=== PATIENT | female | born 1990 | race Caucasian/White ===

== ENCOUNTER 2017-07-15 12:33 | Emergency (ER) | payer SELFPAY ==
[2017-07-15 13:31] LABS: #Eosinphils 0.3 thou/uL (0.0-0.7); #Monocytes 0.7 thou/uL (0.11-0.59); #Neutrophils 5.7 thou/uL (1.40-6.50); %Basophils 0.3 % (0.0-1.0); %Eosinophils 3.3 % (0.0-10.0); %Monocytes 7.8 % (0.0-10.0); Hematocrit 42.3 % (36.0-47.0); Mean Platelet Volume 8.2 fL (7.4-10.4); Red Blood Cell (RBC) Count 4.52 mill/uL (4.20-5.40); White Blood Cell (WBC) Count 8.6 thou/uL (4.8-10.8)
[2017-07-15 13:51] LABS: Bilirubin Negative (Negative); Blood, Urine Negative (Negative); Glucose, Urine (Dipstick) Negative (Negative); Ketone, Urine Negative (Negative); Nitrite Negative (Negative); Protein, Urine (Dipstick) Negative (Neg-Trace); Urobilinogen 0.2 mg/dL (0.2-1.0)
[2017-07-15 13:53] LABS: Bacteria/HPF 1+ HPF (None Seen); Hyaline Casts/LPF 0-3 HYALINE CAST LPF (0-3 Hyaline); RBC/HPF 0-3 HPF (0-3)
[2017-07-15 13:53] LABS: ALT (SGPT) 13 U/L (8-55); AST (SGOT) 13 U/L (5-34); Alkaline Phosphatase 96 U/L (40-150); Anion Gap 12 mmol/L (10-20); BUN (Urea Nitrogen) 6 mg/dL (7.0-18.7); Bilirubin, Total 0.3 mg/dL (0.2-1.2); Calc. Creatinine Clearance 0 mL/min (70-130); Calcium 8.9 mg/dL (7.8-10.44); Carbon Dioxide 22 mmol/L (22-29); Chloride 108 mmol/L (98-107); Estimated GFR-MDRD 89; Globulin 2.7 g/dL (2.4-3.5); Protein, Total 6.7 g/dL (6.0-8.3)
[2017-07-15] MEDS ORDERED: Metoclopramide HCl 10 MG/2 ML VIAL ONE (14:07)
[2017-07-15] MEDS ORDERED: Ketorolac Tromethamine 30 MG/ML VIAL ONE (14:07)
[2017-07-15] MEDS ORDERED: diphenhydrAMINE HCl 50 MG/ML 1 ML VIAL ONE (14:07)
== END 2017-07-15 15:19 | disposition home or self-care (01) ==
LOC: ERS 12:33
DX: G43.909 Migraine, unspecified, not intractable, without status migrainosus (principal); F17.210 Nicotine dependence, cigarettes, uncomplicated
CPT/HCPCS: 36415; 80053; 81003; 81015; 84703; 85025; 96361; 96374; 96375; J1200; J1885; J2765

== ENCOUNTER 2017-12-15 20:30 | Emergency (ER) | payer SELFPAY ==
[2017-12-15] MEDS ORDERED: Dexamethasone 4 mg/ml Vial ONE (21:31)
== END 2017-12-15 21:36 | disposition home or self-care (01) ==
LOC: ERS 20:30
DX: H65.93 Unspecified nonsuppurative otitis media, bilateral (principal); G43.909 Migraine, unspecified, not intractable, without status migrainosus; F17.210 Nicotine dependence, cigarettes, uncomplicated
CPT/HCPCS: 99283; J1100

== ENCOUNTER 2018-06-02 11:22 | Emergency (ER) | payer OTHER, SELFPAY ==
[2018-06-02] MEDS ORDERED: Ketorolac Tromethamine 30 MG/ML VIAL ONE (12:19)
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
== END 2018-06-02 12:36 | disposition home or self-care (01) ==
LOC: ERS 11:22
DX: S06.0X1A Concussion with loss of consciousness of 30 minutes or less, initial encounter (principal); S16.1XXA Strain of muscle, fascia and tendon at neck level, initial encounter; G43.909 Migraine, unspecified, not intractable, without status migrainosus; F17.210 Nicotine dependence, cigarettes, uncomplicated; V43.52XA Car driver injured in collision with other type car in traffic accident, initial encounter
CPT/HCPCS: 70450; 72125; 96374; G0390; J1885

== ENCOUNTER 2018-08-26 15:43 | Emergency (ER) | payer OTHER, SELFPAY ==
[~2018-08-26 15:43] MED LIST: ISOVUE-370 76%-LOCM 1 ML ONE
[2018-08-26 16:27] LABS: Bilirubin Negative (Negative); Blood, Urine Negative (Negative); Clarity CLEAR (Clear); Glucose, Urine (Dipstick) Negative (Negative); Leukocyte Moderate (Negative); Nitrite Negative (Negative); Protein, Urine (Dipstick) Negative (Neg-Trace); Specific Gravity, Urine 1.025 (1.002-1.036); Urobilinogen 0.2 mg/dL (0.2-1.0); pH, Urine 6.5 (5.0-9.0)
[2018-08-26 16:29] LABS: Bacteria/HPF Rare-Few HPF (None Seen); Hyaline Casts/LPF 0-3 HYALINE CAST LPF (0-3 Hyaline)
[2018-08-26 16:31] LABS: #Eosinphils 0.1 thou/uL (0.0-0.7); #Lymphocytes 1.2 thou/uL (1.20-3.40); #Monocytes 0.8 thou/uL (0.11-0.59); #Neutrophils 6.2 thou/uL (1.40-6.50); %Basophils 0.3 % (0.0-1.0); %Eosinophils 0.6 % (0.0-10.0); %Lymphocytes 14.3 % (21.0-51.0); %Monocytes 9.7 % (0.0-10.0); %Neutrophils 75.1 % (42.0-75.0); Hemoglobin 14.6 g/dL (12.0-16.0); Mean Corpuscular HGB CONC 34.3 g/dL (32.0-36.0); Mean Corpuscular Hemoglobin 31.5 pg (27.0-31.0); Mean Platelet Volume 7.7 fL (7.4-10.4); Platelet Count 208 thou/uL (130-400); RBC Distribution Width 11.8 % (11.5-14.5); Red Blood Cell (RBC) Count 4.63 mill/uL (4.20-5.40); White Blood Cell (WBC) Count 8.2 thou/uL (4.8-10.8)
[2018-08-26 16:34] LABS: Pregnancy Test - Urine (BHCG) Negative (Negative); Pregu Control Background? CLEAR/WHITE (CLR/WHITE); Pregu Control Bar Appear? YES (CONTROL BAR); Specific Gravity 1.025 (1.002-1.036)
[2018-08-26] MEDS ORDERED: Metoclopramide HCl 10 MG/2 ML VIAL ONE (16:42)
[2018-08-26] MEDS ORDERED: Ketorolac Tromethamine 30 MG/ML VIAL ONE (16:42)
[2018-08-26] MEDS ORDERED: diphenhydrAMINE 50 MG/ML VIAL ONE (16:42)
[2018-08-26] MEDS ORDERED: Lidocaine 1% (PF) 30 ML VIAL ONE (16:44)
[2018-08-26 16:50] LABS: ALT (SGPT) 23 U/L (8-55); AST (SGOT) 21 U/L (5-34); Albumin 4.2 g/dL (3.5-5.0); Alkaline Phosphatase 103 U/L (40-150); Anion Gap 9 mmol/L (10-20); BUN (Urea Nitrogen) 11 mg/dL (7.0-18.7); Bilirubin, Total 0.4 mg/dL (0.2-1.2); Calc. Creatinine Clearance 0 mL/min (70-130); Calcium 9.3 mg/dL (7.8-10.44); Carbon Dioxide 29 mmol/L (22-29); Chloride 102 mmol/L (98-107); Estimated GFR-MDRD 80; Globulin 2.7 g/dL (2.4-3.5); Glucose 119 mg/dL (70-105); Lipase 18 U/L (8-78); Protein, Total 6.9 g/dL (6.0-8.3); Sodium 136 mmol/L (136-145)
[2018-08-26] MEDS ORDERED: Acetaminophen 500 MG TAB ONE (17:51)
[2018-08-26] MEDS ORDERED: methylPREDNISolone Sod Succ/PF 125 MG/2 ML VIAL ONE (17:51)
--- NOTE | 2018-08-26 18:48 | CT ---
CT ABDOMEN AND PELVIS: 08/26/2018 HISTORY: Lower abdominal pain. COMPARISON: None. TECHNIQUE: Axial CT imaging at 5 mm intervals, from the lung bases through the pubic symphysis, with IV contrast . Coronal reformatted imaging obtained. FINDINGS: The imaged lung bases appear unremarkable. No free intraperitoneal air. Trace free fluid is noted i n the right hemipelvis/pelvic cul-de-sac. The liver, gallbladder, and pancreas appear unremarkable. The spleen is mildly enlarged, measuring 1 4.6 cm in craniocaudal dimension. The adrenal glands and kidneys demonstrate no acute findings. There is an IUD within the pelvis. Limited assessment of the bowel without oral contrast media demonstrates no acute findings. The appe ndix is visualized and appears within normal limits. The vascular structures appear patent. No lymp hadenopathy is noted within the abdomen or pelvis. Review of the osseous structures demonstrates no acute findings. IMPRESSION: Mild splenomegaly. No acute findings. POS: [facility]
== END 2018-08-26 19:02 | disposition home or self-care (01) ==
LOC: ERS 15:43
DX: R51 Headache (principal); R10.30 Lower abdominal pain, unspecified; G43.909 Migraine, unspecified, not intractable, without status migrainosus; F17.210 Nicotine dependence, cigarettes, uncomplicated
CPT/HCPCS: 36415; 74177; 80053; 81003; 81015; 81025; 83690; 85025; 96361; 96365; 96366; 96375; J1200; J1885; J2001; J2765; J2930

== ENCOUNTER 2018-12-21 20:53 | Emergency (ER) | payer SELFPAY ==
[2018-12-21] MEDS ORDERED: Ketorolac Tromethamine 30 MG/ML VIAL ONE ×2 (22:00)
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
== END 2018-12-21 22:25 | disposition home or self-care (01) ==
LOC: ERS 20:53
DX: S93.402A Sprain of unspecified ligament of left ankle, initial encounter (principal); F17.210 Nicotine dependence, cigarettes, uncomplicated; W17.89XA Other fall from one level to another, initial encounter
CPT/HCPCS: 96372; J1885

== ENCOUNTER 2019-12-24 23:48 | Emergency (ER) | payer OTHER, SELFPAY ==
[2019-12-25] MEDS ORDERED: Albuterol 200 PUFF (6.7GM INHALER) ONE (00:22)
[2019-12-25] MEDS ORDERED: predniSONE 20 MG TAB ONE ×2 (00:35→00:36)
== END 2019-12-25 01:14 | disposition home or self-care (01) ==
LOC: ERS 23:48
DX: J45.901 Unspecified asthma with (acute) exacerbation (principal); G43.909 Migraine, unspecified, not intractable, without status migrainosus; F17.210 Nicotine dependence, cigarettes, uncomplicated
CPT/HCPCS: 99284; J7512